=== PATIENT | female | born 1965 | race Two or more races ===

== ENCOUNTER 2024-03-09 13:03 | Emergency (ER) | payer SELFPAY ==
[~2024-03-09] VITALS: Ht 172.7 cm; Wt 80.0 kg
[2024-03-09 14:18] VITALS: BP 146/92; PULSE 94; RESP 18; TEMP 97.4; O2SAT 99
--- NOTE | 2024-03-09 14:29 | ED.PDOC ---
History of Present Illness HPI Comments A 58 YEAR OLD FEMALE PRESENTS TO THE ED WITH COMPLAINT OF COUGH AND MIGRAINE HEADACHE. PATIENT STATES SHE HAS BEEN EXPERIENCING A COUGH, CONGESTION, AND BODY ACHES FOR THE PAST 3 DAYS. PATIENT REPORTS SHE ALSO AHS A HISTORY OF MIGRAINE HEADACHES AND HAS BEEN EXPERIENCING A MIGRAINE HEADACHE FOR THE PAST 3 DAYS. PATIENT NOTES HER MIGRAINE IS THE SAME PREVIOUS MIGRAINES SHE HAS HAD IN THE PAST. PATIENT DENIES VISION CHANGES, SLURRED SPEECH, ONE-SIDED WEAKNESS, FACIAL DROOP, FEVER, CHILLS, SHORTNESS OF BREATH, CHEST PAIN, ABDOMINAL PAIN, NAUSEA, VOMITING, OR OTHER COMPLAINTS. NO OTHER SYMPTOMS OR MODIFYING FACTORS AT THIS TIME. PATIENT IS ALERT, ORIENTED X 4, AND HAS STEADY GAIT. Chief Complaint: Flu like Time Seen by MD: 13:46 Primary Care Provider: NONE Reviewed Notes: Nurses Notes, Medications, Allergies Allergies: Coded Allergies: Lactose (Verified Allergy, Unknown, 03/09/24) Home Meds Active Scripts Sumatriptan Succinate (Imitrex) 50 Mg Tab, 1 TAB PO BID, #14 TAB 1 Refill Prov:BRIDGET NUNN 03/09/24 Promethazine-Dm (Promethazine Dm 6.25-15 mg/5Ml) 1 Amara Amara, 5 ML PO TID, #150 ML Prov:BRIDGET NUNN 03/09/24 Information Source: Patient Mode of Arrival: Ambulatory Severity: Moderate Timing: Days Duration: Since onset, Days Prehospital treatment: None Medication Refill: For: Other (FLU-LIKE SYMPTOMS AND MIGRAINE HEADACHE ) Past Medical History Past Medical History (Other): MIGRAINE HEADACHES Surgical History: Denies all surgeries APPEALS EXAMINER History: No Pertinent APPEALS EXAMINER History Family History Family History: Reviewed,noncontributory to illness Social History Smoker: Non-Smoker Alcohol: Denies ETOH Use Drugs: Denies Drug Use Lives In: Home Constitutional: denies: chills, diaphoresis, fatigue, fever, malaise, sweats, weakness, others EENTM: reports: nose congestion; denies: blurred vision, double vision, ear bleeding, ear discharge, ear drainage, ear pain, ear ringing, eye pain, eye redness, hearing loss, mouth pain, mouth swelling, nasal discharge, nose bleeding, nose pain, photophobia, tearing, throat pain, throat swelling, voice changes, others Respiratory: reports: cough; denies: hemoptysis, orthopnea, SOB at rest, shortness of breath, SOB with excertion, stridor, wheezing, others Cardiovascular: denies: chest pain, dizzy spells, diaphoresis, Dyspnea on exertion, edema, irregular heart beat, left arm pain, lightheadedness, palpitations, PND, syncope, others Gastrointestinal: denies: abdomen distended, abdominal pain, blood streaked bowels, constipated, diarrhea, dysphagia, difficulty swallowing, hematemesis, melena, nausea, poor appetite, poor fluid intake, rectal bleeding, rectal pain, vomiting, others Genitourinary: denies: abnormal vagina bleeding, burning, dyspareunia, dysuria, flank pain, frequency, hematuria, incontinence, pain, , vagina discharge, urgency, others Neurological: reports: headache; denies: dizziness, fainting, left sided numbness, left sided weakness, numbness, paresthesia, pre-existing deficit, right sided numbness, right sided weakness, seizure, speech problems, tingling, tremors, weakness, others Musculoskeletal: denies: back pain, gout, joint pain, joint swelling, muscle pain, muscle stiffness, neck pain, others Integumetry: denies: bruises, change in color, change in hair/nails, dryness, laceration, lesions, lumps, rash, wounds, others Allergic/Immunocompromised: denies: Difficulty Healing, Frequent Infections, Hives, Itching, others Hematologic/Lymphatic: denies: anemia, blood clots, easy bleeding, easy bruising, swollen glands, others Endocrine: denies: excessive hunger, excessive sweating, excessive thirst, excessive urination, flushing, intolerance to cold, intolerance to heat, un explained weight gain, unexplained weight loss, others Psychiatric: denies: anxiety, bipolar disorder, depression, hopeless, panic disorder, schizophrenia, sleepless, suicidal, others All Other Systems: Reviewed and Negative Physical Exam General Appearance: Mild Distress, Normal, Other (ANXIOUS ) HEENT: Normal ENT Inspection, PERRL/EOMI, Pharynx Normal, TMs Normal Neck: Full Range of Motion, Non-Tender, Normal, Normal Inspection Respiratory: Chest Non-Tender, Lungs Clear, No Accessory Muscle Use, No Respiratory Distress, Normal Breath Sounds Cardiovascular: No Edema, No JVD, No Murmur, No Gallop, Normal Peripheral Pulses, Regular Rate/Rhythm Breast Exam: Deferred Gastrointestinal: No Organomegaly, Non Tender, No Pulsatile Mass, Normal Bowel Sounds, Soft Genitalia: Deferred Pelvic: Deferred Rectal: Deferred Extremities: No calf tenderness, Normal capillary refill, Normal inspection, Normal range of motion, Non-tender, No pedal edema Musculoskeletal : Apperance: Normal Neurologic: Alert, [employer] II-XII nml as Tested, Headache, No Motor Deficits, Norm al Affect, Normal Mood, No Sensory Deficits Cerebellar Function: Normal Reflexes: Normal Skin: Dry, Normal Color, Warm Peripheral Pulses: 2+ carotid (R), 2+ carotid (L) Lymphatic: No Adenopathy Was a procedure done? Was a procedure done?: No Differential Dx Considerations may include: MIGRAINE HEADACHES, TENSION HEADACHE, URI, BRONCHITIS, PNEUMONIA, TONSILLITIS, OTITIS MEDIA, SINUSITIS X-Ray, Labs, Meds, VS Vital Signs Date Time Temp Pulse Resp B/P (MAP) Pulse Ox O2 Delivery O2 Flow Rate FiO2 03/09/24 14:18 97.4 94 18 146/92 (110) 99 97.4 03/09/24 14:18 94 18 99 Room Air 03/09/24 13:22 97.4 94 18 146/92 (110) 99 Current Medications Medications (Trade) Dose Ordered Sig/Ro Route Start Time Stop Time Status Last Admin Sumatriptan Succinate (Imitrex Inj) 6 mg ONCE ONCE SC 03/09/24 14:45 03/09/24 14:46 DC 03/09/24 14:48 Ondansetron HCl (Zofran Po) 4 mg ONCE ONCE PO 03/09/24 14:45 03/09/24 14:46 DC 03/09/24 14:47 CHEST RADIOGRAPH Indication: COUGH Technique: Frontal and lateral view of the chest was obtained Comparison: None FINDINGS: Lines and Tubes: None Lungs: Clear Pleura: No effusion. No pneumothorax. Cardiomediastinal contours: Unremarkable Bones: Unremarkable IMPRESSION: 1. No evidence of acute disease. ATED BY: ROSEY BROWN MD DICTATED DATE/TIME: 03/09/24 143 SIGNED BY: ROSEY BROWN MD SIGNED DATE/TIME: 03/09/241436 CC: X-Ray, Labs, Meds, VS Comment EXTERNAL MEDICAL RECORDS REVIEWED: [NONE] INDEPENDENT HISTORIANS: [NONE] SOCIAL DETERMINANTS OF HEALTH: [NONE] LABS ORDERED: NONE REVIEWED AND INTERPRETED RESULTS: NONE IMAGING ORDERED: XR CHEST TREATMENTS ORDERED: IMITREX 6 MG IM, ZOFRAN 4 MG P.O. PROCEDURES PERFORMED: NONE CRITICAL CARE TIME: NONE I HAVE DISCUSSED THE PATIENT WITH THE ATTENDING PHYSICIAN DR. RIVERA AND HE AGREES WITH THE PATIENT'S PLAN OF CARE AND DISPOSITION. BASED ON HISTORY OF PRESENT ILLNESS, AND PHYSICAL EXAM, PATIENT WILL BE DISCHARGED HOME. SHARED DECISION MAKING: PATIENT INSTRUCTED TO FOLLOW UP WITH PRIMARY CARE PROV IDER IN 1-2 DAYS FOR RE-EVALUATION OF SYMPTOMS. PATIENT VERBALIZES UNDERSTANDING TO RETURN TO ED FOR NEW OR WORSENING SYMPTOMS OR IF FOLLOW UP WITH PCP CANNOT BE OBTAINED. PATIENT FEELS COMFORTABLE GOING HOME AT THIS TIME. ALL QUESTIONS ADDRESSED AT TIME OF DISCHARGE. Images Reviewed?: Images reviewed and evaluated by me Time of 1ST Reevaluation: 15:00 Reevaluation 1ST: Improved Patient Education/Counseling: Diagnosis, Treatment, Need For Follow Up Family Education/Counseling: Diagnosis, Treatment, Need For Follow Up Medical Screening: No EMC Exist At This Time Departure 1 Departure Time of Disposition: 15:00 Impression: Primary Impression: URI (upper respiratory infection) Qualified Codes: J06.9 - Acute upper respiratory infection, unspecified Additional Impression: Migraine headache without aura Qualified Codes: G43.009 - Migraine without aura, not intractable, without status migrainosus Disposition: 01 HOME / SELF CARE / HOMELESS Condition: Stable Additional Instructions: FOLLOW-UP WITH PCP IN 1 TO 2 DAYS. TAKE MEDICATIONS PRESCRIBED. RETURN TO ED FOR ANY NEW OR WORSENING SYMPTOMS. e-Prescriptions Sumatriptan Succinate (Imitrex) 50 Mg Tab 1 TAB PO BID, #14 TAB 1 Refill Prov: BRIDGET NUNN 03/09/24 Promethazine-Dm (Promethazine Dm 6.25-15 mg/5Ml) 1 Amara Amara 5 ML PO TID, #150 ML Prov: BRIDGET NUNN 03/09/24 Discharged With: Self Critical Care Note Critical Care Time?: No Stability Stability form required: No I personally scribed for BRIDGET NUNN ([email or web address]) on 03/09/24 at 14:29. Electronically submitted by Orlando Bautista ([email or web address]). I personally scribed for BRIDGET NUNN ([email or web address]) on 03/09/24 at 14:46. Electronically submitted by Orlando Bautista ([email or web address]). BRIDGET NUNN Mar 09, 2024 14:29
--- NOTE | 2024-03-09 14:40 | DVH ---
CHEST RADIOGRAPH Indication: COUGH Technique: Frontal and lateral view of the chest was obtained Comparison: None FINDINGS: Lines and Tubes: None Lungs: Clear Pleura: No effusion. No pneumothorax. Cardiomediastinal contours: Unremarkable Bones: Unremarkable IMPRESSION: 1. No evidence of acute disease.
[2024-03-09] MEDS: ONDANSETRON ODT 4 MG TAB PO ONE (14:47)
[2024-03-09] MEDS: SUMAtriptan SUCCINATE 6 MG/0.5 ML VL SC ONE (14:48)
[2024-03-09] MEDS ORDERED: PROM1SOL4 PO (14:54)
[2024-03-09] MEDS ORDERED: SUMA50TA2 PO (14:54)
== END 2024-03-09 14:54 | disposition home or self-care (01) ==
LOC: ER 13:03
DX: G43.809 Other migraine, not intractable, without status migrainosus (principal); Z88.8 Allergy status to other drugs, medicaments and biological substances
CPT/HCPCS: 71046; 96372; 99283; J3030; Q0162

== ENCOUNTER 2024-05-05 18:47 | Inpatient (IN) | payer MEDICAID, OTHER ==
[~2024-05-05] VITALS: Ht 172.7 cm; Wt 83.2 kg
[~2024-05-05 18:47] MED LIST: PROM1SOL4 PO; SUMA50TA2 PO
--- NOTE | 2024-05-05 19:08 | ED.PDOC ---
"GI ASSESSMENT HPI Comments HPI: Poor Historian. 58-year-old female presents to emergency depart for one day history of epigastric abdominal pain with the associated nausea vomiting diarrhea nonbilious nonbloody normal stool color. Onset of symptoms earlier today. 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 Past Surgical History: Appendectomy, tonsillectomy REVIEW OF SYSTEMS: CONSTITUTIONAL: Denies acute: fever, diaphoresis, chills, HEAD: Denies acute: photophobia Eyes: Denies acute: Double vision, vision loss, eye pain, eye discharge. EARS: Denies acute: tinnitus, hearing loss, ear discharge, ear pain, THROAT: Denies acute: sore throat, swelling, difficulty swallowing , pain with swallowing, change in voice. NECK: Denies acute: neck pain, neck swelling, stiff neck. HEART: Denies acute : chest pain, palpitations, LUNGS: Denies acute: SOB, wheezing, cough, hemoptysis ABDOMEN: Denies acute: , melena , hematemesis, hematochezia SKIN: Denies acute: rash, redness, lesions, itchiness. EXTREMITIES: Denies acute: calf pain, numbness, tingling, weakness, denies pain in extremity. Denies acute: Low back pain. Neuro: Denies acute: focal neurological deficit, motor or sensory focal neurological deficit, tremors, seizure like activity, confusion, dizziness, change in mental status, loss of bowel or bladder function, cauda equina like symptoms. : Denies acute: dysuria, hematuria, flank pain, increase in urinary frequency. PSYCH: Denies acute: hallucination, suicidal ideation, homicidal ideation. FEMALE: Denies acute: abnormal vaginal bleeding, foul odor, unusual discharge. PHYSICAL EXAM: General: Mild acute distress, awake and alert. Head: normocephalic, atraumatic. Neck: supple, trachea is midline, no swelling. Throat: Normal phonation. Eyes:, no erythema, no purulent discharge, no proptosis, no icterus. Heart: regular rate, regular rhythm, no significant murmur appreciated. Lungs: no apparent respiratory distress, Able to speak in full sentences. No wheezing, no rhonchi, no crackles. No stridors Clear to auscultation bilaterally. Abdomen: Minimal epigastric tender to palpation, non distended, soft, no guarding, no rebound, + bowel sounds. Neuro: Awake, Alert, oriented to name, self, situation, follows commands GCS=15. Speech is normal. Skin: no petechia, no purpura, no cyanosis, non-pale, not jaundice. Lower extremities: --no - Pitting edema no deformity, no focal swelling, no calf TTP. Makes eye contact. moves all four extremities. Face: no apparent facial droop. Ambulating in the ED independently. ED COURSE: Time Seen by MD: 18:50 Primary Care Provider: NONE Reviewed Notes: Nurses Notes, Allergies Allergies: Coded Allergies: Lactose (Verified Allergy, Unknown, 03/09/24) Home Meds Active Scripts Sumatriptan Succinate (Imitrex) 50 Mg Tab, 1 TAB PO BID, #14 TAB 1 Refill Prov:BRIDGET NUNN 03/09/24 Promethazine-Dm (Promethazine Dm 6.25-15 mg/5Ml) 1 Amara Amara, 5 ML PO TID, #150 ML Prov:BRIDGET NUNN 03/09/24 Information Source: Patient Past Medical History Surgical History: Denies all surgeries CIVILIAN TECHNICIAN History: No Pertinent CIVILIAN TECHNICIAN History Family History Family History: Reviewed,noncontributory to illness Social History Smoker: Non-Smoker Alcohol: Denies ETOH Use Drugs: Denies Drug Use Lives In: Home Was a procedure done? Was a procedure done?: No GI differential Dx Differential Diagnosis: Other (DDX include Diverticulitis, colitis, gastroenteritis, acute abdomen, SBO, enteritis, constipation, volvulus, appendic itis, Gallbladder disease, choledocolithiasis, ascending cholangitis, pancreatitis, intraAbdominal mass/neoplasm, hepatitis, UTI, pylonephritis, kidney stone, aneurysm, dissection, Inflammatory bowel disease, gastroparesis, ischemic bowel, ovarian torsion, ovarian cyst/mass, tubo-ovarian abscess, , PID, STD.) X-Ray, Labs, Meds, VS Vital Signs Date Time Temp Pulse Resp B/P (MAP) Pulse Ox O2 Delivery O2 Flow Rate FiO2 05/06/24 00:03 135/80 05/05/24 23:32 149/93 05/05/24 23:30 98.0 80 13 149/93 (111) 97 98.0 05/05/24 23:30 80 13 97 Room Air* 0 21 05/05/24 19:11 70 05/05/24 19:08 97.5 87 18 120/50 (73) 98 Lab Test 05/05/24 22:11 05/05/24 21:35 05/05/24 20:42 05/05/24 20:38 Range/Units Troponin I High Sensitivity 49 *H </=34 ng/L Lactic Acid Level 1.8 0.4-2.0 mmol/L Influenza Type A Antigen Negative Negative Influenza Type B Antigen Negative Negative SARS-CoV-2 Antigen (Rapid) Negative NEGATIVE Urine Color Light-yellow Yellow Urine Clarity Clear Clear Urine pH 5.0 5.0-9.0 Urine Specific [place] 1.020 1.001-1.035 Urine Protein Negative Negative Urine Ketones Negative Negative Urine Blood 2+ H Negative /uL Urine Nitrite 2+ H Negative Urine Bilirubin Negative Negative Urine Urobilinogen Normal Negative mg/dL Urine Leukocyte Esterase Negative Negative /uL Urine RBC 2 0 - 4 /hpf Urine Microscopic WBC 3 0-5 /HPF Urine Squamous Epithelial Cells Few <5 /hpf Urine Bacteria Few H None Seen /hpf Urine Mucus Few None Seen Urine Glucose Normal Normal mg/dL Urine Opiates Screen Neg NEGATIVE Urine Fentanyl Screen Neg NEGATIVE Urine Barbiturates Screen Neg NEGATIVE Urine Phencyclidine Screen Neg NEGATIVE Urine Amphetamines Screen Neg NEGATIVE Urine Benzodiazepines Screen Neg NEGATIVE Urine Cocaine Screen Neg NEGATIVE Urine Cannabinoids Screen Pos NEGATIVE Test 05/05/24 20:05 05/05/24 19:16 Range/Units Troponin I High Sensitivity 29 17 </=34 ng/L White Blood Count 11.7 H 4.4-10.8 10^3/uL Red Blood Count 5.30 H 4.0-5.20 10^6/uL Hemoglobin 16.5 H 12.2-16.2 g/dL Hematocrit 48.6 H 36.0-46.0 % Mean Corpuscular Volume 91.6 80.0-100.0 fL Mean Corpuscular Hemoglobin 31.2 28.0-32.0 pg Mean Corpuscular Hemoglobin Concent 34.0 32.0-36.0 g/dL Red Cell Distribution Width 12.8 11.8-14.3 % Platelet Count 281 140-450 10^3/uL Mean Platelet Volume 7.8 6.9-10.8 fL Neutrophils (%) (Auto) 76.6 37.0-80.0 % Lymphocytes (%) (Auto) 18.0 10.0-50.0 % Monocytes (%) (Auto) 4.0 0.0-12.0 % Eosinophils (%) (Auto) 0.6 0.0-7.0 % Basophils (%) (Auto) 0.8 0.0-2.0 % Neutrophils # (Auto) 8.9 H 1.6-8.6 10 ^3/uL Lymphocytes # (Auto) 2.1 0.4-5.4 10 ^3/uL Monocytes # (Auto) 0.5 0-1.3 10 ^3/uL Eosinophils # (Auto) 0.1 0-0.8 10 ^3/uL Basophils # (Auto) 0.1 0-0.2 10 ^3/uL Nucleated Red Blood Cells 0.0 % Sodium Level 138 136-145 mmol/L Potassium Level 3.9 3.5-5.1 mmol/L Chloride Level 104 98-107 mmol/L Carbon Dioxide Level 22 20-31 mmol/L Anion Gap 12 5-15 Blood Urea Nitrogen 12 9-23 mg/dL Creatinine 0.84 0.550-1.02 mg/dL Glomerular Filtration Rate Calc 81 >90 mL/min BUN/Creatinine Ratio 14.3 10.0-20.0 Serum Glucose 122 H 74-106 mg/dL Lactic Acid Level 2.1 *H 0.4-2.0 mmol/L Calcium Level 10.5 H 8.7-10.4 mg/dL Magnesium Level 1.8 1.6-2.6 mg/dL Total Bilirubin 0.6 0.2-1.0 mg/dL Aspartate Amino Transferase (AST) 21 13-40 U/L Alanine Aminotransferase (ALT) 27 7-40 U/L Alkaline Phosphatase 65 46-116 U/L Total Protein 6.7 5.7-8.2 g/dL Albumin 4.7 3.2-4.8 g/dL Lipase 44 12-53 U/L Plasma/Serum Blood Alcohol 36.1 H <10 mg/dL Current Medications Medications (Trade) Dose Ordered Sig/Ro Route Start Time Stop Time Status Last Admin Sodium Chloride 1,000 ml @ 1,000 mls/hr Q1H ONCE IV 05/05/24 19:15 05/05/24 20:14 DC 05/05/24 23:28 Ondansetron HCl (Zofran) 8 mg ONCE ONCE IV 05/05/24 19:15 05/05/24 19:16 DC 05/05/24 23:34 Ceftriaxone Sodium 50 ml @ 100 mls/hr ONCE ONCE IV 05/05/24 22:15 05/05/24 22:44 DC 05/05/24 23:31 Nitroglycerin (Ntrostat Sublingual) 0.4 mg ONCE ONCE SL 05/05/24 23:30 05/05/24 23:31 DC 05/05/24 23:32 Pantoprazole Sodium (Protonix Tablet) 40 mg ONCE ONCE PO 05/06/24 00:00 05/06/24 00:01 DC 05/06/24 00:19 Sucralfate (Carafate Tab) 1 gm ONCE ONCE PO 05/06/24 00:00 05/06/24 00:01 DC 05/06/24 00:19 Lidocaine HCl (Xylocaine 2% Viscous) 10 ml ONCE ONCE PO 05/06/24 00:00 05/06/24 00:01 DC 05/06/24 00:19 [place] [address] Ph: [phone] DIAGNOSTIC IMAGING Diagnostic Imaging Report : [id number] Signed PATIENT: CORY OMER ACCT: [id number] UNIT: [id number] : 1965 LOC: ER ROOM / BED: / AGE / SEX: 58 / F ADM STATUS: REG ER SERVICE 02 ORDERING PHYSICIAN: ANALI LEHMAN DO PROCEDURE(s): CXRP - CHEST PORTABLE REASON: abd pain n/v/d ORDER NUMBER(s): [id number], ACCESSION NUMBER(s): [id number] CHEST RADIOGRAPH Indication: abd pain n/v/d Technique: Single frontal view of the chest was obtained COMPARISON: None FINDINGS: Lines and Tubes: None Lungs: Clear Pleura: No effusion. No pneumothorax. Cardiomediastinal contours: Unremarkable Bones: Unremarkable IMPRESSION: No acute disease. ATED BY: NORBERTO RAMIREZ MD DICTATED DATE/TIME: 05/05/241955 SIGNED BY: NORBERTO RAMIREZ MD SIGNED DATE/TIME: 05/05/241955 CC: [place] [id number] Ph: [phone] DIAGNOSTIC IMAGING Diagnostic Imaging Report : [id number] Signed PATIENT: CORY OMER ACCT: [id number] UNIT: [id number] : 1965 LOC: ER ROOM / BED: / AGE / SEX: 58 / F ADM STATUS: REG ER SERVICE 02 ORDERING PHYSICIAN: ANALI LEHMAN DO PROCEDURE(s): ABPL - CT AB PEL WO CON-NO ORAL OR IV REASON: abd pain n/v/d ORDER NUMBER(s): [id number], ACCESSION NUMBER(s): [id number] Exam: CT CT AB PEL WO CON-NO ORAL OR IV History: abd pain n/v/d Comparison Study: None available TECHNIQUE: Multidetector CT of the abdomen and pelvis was performed from lung bases to pubic symphysis. Imaging was performed without IV contrast. Axial, coronal, and sagittal multiplanar reformats were obtained from the axial data set by the technologist. RADIATION DOSE: DLP 761.15 mGy.cm; CTDI vol 15.01 mGy. Findings: Limited evaluation given noncontrast technique. Lungs: The lung bases are clear. Heart: No cardiomegaly or pericardial effusion. Liver: Unremarkable. Gallbladder: Unremarkable. Spleen: Unremarkable Pancreas: Unremarkable Adrenals: Unremarkable Kidneys: Subcentimeter hypodense lesions in the left kidney which are too small to characterize. GI tract: Diverticulosis without evidence of acute diverticulitis. : Unremarkable. Vasculature: Mild aortoiliac atherosclerosis. Lymphadenopathy: Absent Peritoneum: No ascites Musculoskeletal: Mild multilevel degenerative changes of the thoracolumbar spine. Soft tissues: Bilateral gluteal and proximal thigh soft tissue edema with superimposed injection granulomas. Impression: 1. Limited evaluation given noncontrast technique. 2. No acute abdominopelvic abnormalities. 3. Diverticulosis without evidence of acute diverticulitis. 4. Bilateral gluteal and proximal thigh soft tissue edema with superimposed injection granulomas. ATED BY: KAYLAN FOWLER DO DICTATED DATE/TIME: 05/05/242022 SIGNED BY: KAYLAN FOWLER DO SIGNED DATE/TIME: 05/05/242022 CC: Time of 1ST Reevaluation: 22:27 Reevaluation 1ST: Improved Patient Education/Counseling: Diagnosis, Treatment Family Education/Counseling: Other Comments Patient presented with the above HPI.--- ABDOMINAL PAIN ---workup was initiated. patient was found with the above mentioned diagnosis. the following medications were ordered: please refer to order lists of meds and tests obtained by myself Dr. Lehman. Patient ED course and VS have been stabilized. Patient has been reassessed in the ED and remained in a stable condition. Pertinent incidental findings were discussed with the patient and/or family. Patient/family voices understanding and is agreeable with plan. Patient has been observed in the ED adequate length of time to insure improvement/stability. Escalation of care considered: Consideration of escalation to observation or admission Patient was ADMITTED to the medicine team for further evaluation and treatment of their presentation. All the reports of any imaging studies that were ordered by myself were reviewed by myself. Departure 1 Departure Time of Disposition: 22:04 Impression: Primary Impression: Urinary tract infection Additional Impressions: Alcohol abuse Nausea vomiting and diarrhea Abdominal pain Elevated troponin Disposition: ADMITTED INPATIENT Admit to: [facility] Condition: Guarded Additional Instructions: [place] [address] Ph: [phone] DIAGNOSTIC IMAGING Diagnostic Imaging Report : [id number] Signed PATIENT: CORY OMER ACCT: [id number] UNIT: [id number] : 1965 LOC: ER ROOM / BED: / AGE / SEX: 58 / F ADM STATUS: REG ER SERVICE 02 ORDERING PHYSICIAN: ANALI LEHMAN DO PROCEDURE(s): CXRP - CHEST PORTABLE REASON: abd pain n/v/d ORDER NUMBER(s): [id number], ACCESSION NUMBER(s): [id number] CHEST RADIOGRAPH Indication: abd pain n/v/d [address] [address] Ph: [phone] DIAGNOSTIC IMAGING Diagnostic Imaging Report : [id number] Signed PATIENT: CORY OMER ACCT: [id number] UNIT: [id number] : 1965 LOC: ER ROOM / BED: / AGE / SEX: 58 / F ADM STATUS: REG ER SERVICE 02 ORDERING PHYSICIAN: ANALI LEHMAN DO PROCEDURE(s): ABPL - CT AB PEL WO CON-NO ORAL OR IV REASON: abd pain n/v/d ORDER NUMBER(s): [id number], ACCESSION NUMBER(s): [id number] Exam: CT CT AB PEL WO CON-NO ORAL OR IV History: abd pain n/v/d Comparison Study: None available TECHNIQUE: Multidetector CT of the abdomen and pelvis was performed from lung bases to pubic symphysis. Imaging was performed without IV contrast. Axial, coronal, and sagittal multiplanar reformats were obtained from the axial data set by the technologist. RADIATION DOSE: DLP 761.15 mGy.cm; CTDI vol 15.01 mGy. Findings: Limited evaluation given noncontrast technique. Lungs: The lung bases are clear. Heart: No cardiomegaly or pericardial effusion. Liver: Unremarkable. Gallbladder: Unremarkable. Spleen: Unremarkable Pancreas: Unremarkable Adrenals: Unremarkable Kidneys: Subcentimeter hypodense lesions in the left kidney which are too small to characterize. GI tract: Diverticulosis without evidence of acute diverticulitis. : Unremarkable. Vasculature: Mild aortoiliac atherosclerosis. Lymphadenopathy: Absent Peritoneum: No ascites Musculoskeletal: Mild multilevel degenerative changes of the thoracolumbar spine. Soft tissues: Bilateral gluteal and proximal thigh soft tissue edema with superimposed injection granulomas. Impression: 1. Limited evaluation given noncontrast technique. 2. No acute abdominopelvic abnormalities. 3. Diverticulosis without evidence of acute diverticulitis. 4. Bilateral gluteal and proximal thigh soft tissue edema with superimposed injection granulomas. ATED BY: KAYLAN FOWLER DO DICTATED DATE/TIME: 05/05/242022 SIGNED BY: KAYLAN FOWLER DO SIGNED DATE/TIME: 05/05/242022 CC: Technique: Single frontal view of the chest was obtained COMPARISON: None FINDINGS: Lines and Tubes: None Lungs: Clear Pleura: No effusion. No pneumothorax. Cardiomediastinal contours: Unremarkable Bones: Unremarkable IMPRESSION: No acute disease. ATED BY: NORBERTO RAMIREZ MD DICTATED DATE/TIME: 05/05/241955 SIGNED BY: NORBERTO RAMIREZ MD SIGNED DATE/TIME: 05/05/241955 CC: Discharged With: Self Critical Care Note Critical Care Time?: Yes (45 min-critical care time only) Heart Score Heart Score: Heart Score Response (Comments) Value History Slightly Suspicious 0 EKG Normal 0 Age 45-64 1 Risk Factors >3 or Hx ASHD 2 Troponin 1-2 x's Normal limit 1 Total 4 I personally scribed for ANALI LEHMAN DO ([email or web address]) on 05/05/24 at 20:44. Electronically submitted by Jn Kim [email or web address]). ANALI LEHMAN DO May 05, 2024 19:08"
[2024-05-05] MEDS: ONDANSETRON HCL 4 MG/2 ML VIAL IV ONE (19:15)
[2024-05-05 19:33] LABS: Basophils # (auto) 0.1 10 ^3/uL (0-0.2); Basophils % (auto) 0.8 % (0.0-2.0); Eosinophils # (auto) 0.1 10 ^3/uL (0-0.8); Eosinophils % (auto) 0.6 % (0.0-7.0); Hematocrit 48.6 % (36.0-46.0); Hemoglobin 16.5 g/dL (12.2-16.2); Lymphocytes # (auto) 2.1 10 ^3/uL (0.4-5.4); Mean Corpuscular Hemoglobin 31.2 pg (28.0-32.0); Mean Corpuscular Volume 91.6 fL (80.0-100.0); Monocytes # (auto) 0.5 10 ^3/uL (0-1.3); Neutrophils # (auto) 8.9 10 ^3/uL (1.6-8.6); Neutrophils % (auto) 76.6 % (37.0-80.0); Platelet Count (auto) 281 10^3/uL (140-450); Red Cell Distribution Width 12.8 % (11.8-14.3); White Blood Cell 11.7 10^3/uL (4.4-10.8)
[2024-05-05 19:52] LABS: Alanine Aminotransferase 27 U/L (7-40); Albumin 4.7 g/dL (3.2-4.8); Alkaline Phosphatase 65 U/L (46-116); Anion Gap 12 (5-15); Aspartate Aminotransferase 21 U/L (13-40); BUN/Creatinine Ratio 14.3 (10.0-20.0); Blood Urea Nitrogen 12 mg/dL (9-23); Carbon Dioxide 22 mmol/L (20-31); Chloride 104 mmol/L (98-107); Lipase 44 U/L (12-53); Magnesium 1.8 mg/dL (1.6-2.6); Potassium 3.9 mmol/L (3.5-5.1); Sodium 138 mmol/L (136-145)
[2024-05-05 19:53] LABS: Bilirubin, Total 0.6 mg/dL (0.2-1.0); Total Protein 6.7 g/dL (5.7-8.2)
--- NOTE | 2024-05-05 20:01 | DVH ---
CHEST RADIOGRAPH Indication: abd pain n/v/d Technique: Single frontal view of the chest was obtained COMPARISON: None FINDINGS: Lines and Tubes: None Lungs: Clear Pleura: No effusion. No pneumothorax. Cardiomediastinal contours: Unremarkable Bones: Unremarkable IMPRESSION: No acute disease.
[2024-05-05 20:05] LABS: Calcium 10.5 mg/dL (8.7-10.4); Glucose 122 mg/dL (74-106)
--- NOTE | 2024-05-05 20:25 | DVH ---
Exam: CT CT AB PEL WO CON-NO ORAL OR IV History: abd pain n/v/d Comparison Study: None available TECHNIQUE: Multidetector CT of the abdomen and pelvis was performed from lung bases to pubic symphysi s. Imaging was performed without IV contrast. Axial, coronal, and sagittal multiplanar reformats were obtained from the axial data set by the technologist. RADIATION DOSE: DLP 761.15 mGy.cm; CTDI vol 15.01 mGy. Findings: Limited evaluation given noncontrast technique. Lungs: The lung bases are clear. Heart: No cardiomegaly or pericardial effusion. Liver: Unremarkable. Gallbladder: Unremarkable. Spleen: Unremarkable Pancreas: Unremarkable Adrenals: Unremarkable Kidneys: Subcentimeter hypodense lesions in the left kidney which are too small to characterize. GI tract: Diverticulosis without evidence of acute diverticulitis. : Unremarkable. Vasculature: Mild aortoiliac atherosclerosis. Lymphadenopathy: Absent Peritoneum: No ascites Musculoskeletal: Mild multilevel degenerative changes of the thoracolumbar spine. Soft tissues: Bilateral gluteal and proximal thigh soft tissue edema with superimposed injection gran ulomas. Impression: 1. Limited evaluation given noncontrast technique. 2. No acute abdominopelvic abnormalities. 3. Diverticulosis without evidence of acute diverticulitis. 4. Bilateral gluteal and proximal thigh soft tissue edema with superimposed injection granulomas.
[2024-05-05 20:28] LABS: Lactic Acid w/Reflex 2.1 mmol/L (0.4-2.0)
[2024-05-05 21:03] LABS: Urine Bacteria FEW /hpf (None Seen); Urine Blood 2+ /uL (Negative); Urine Clarity Clear (Clear); Urine Color Light-Yellow (Yellow); Urine Mucus FEW (None Seen); Urine Protein, UAD Negative (Negative); Urine Squamous Epithelial Cell FEW /hpf (<5); Urine Urobilinogen Normal (Negative); Urine WBC 3 /HPF (0-5)
[2024-05-05 21:06] LABS: Cannabinoid Screen, Urine Pos (NEGATIVE)
[2024-05-05 21:09] LABS: Amphetamine Screen, Urine Neg (NEGATIVE); Barbiturate Scree,Urine Neg (NEGATIVE); Benzodiazephine Screen, Urine Neg (NEGATIVE); Cocaine Screen, Urine Neg (NEGATIVE); Opiate Scree,Urine Neg (NEGATIVE); Phencyclidine Screen, Urine Neg (NEGATIVE)
[2024-05-05 22:08] LABS: COVID19 ANTIGEN SOFIA FIA NEGATIVE (NEGATIVE)
[2024-05-05 22:21] LABS: Rapid Influenza A Negative (Negative); Rapid Influenza B Negative (Negative)
[2024-05-05] MEDS: SODIUM CHLORIDE 0.9% 1,000 ML IV ONE (23:28)
[2024-05-05 23:30] VITALS: PULSE 80; RESP 13; O2SAT 97
[2024-05-05] MEDS: cefTRIAXone 1GM/50ML D5W 50 ML IV ONE (23:31)
[2024-05-05] MEDS: NITROGLYCERIN 0.4 MG SL TAB SL ONE (23:32)
[2024-05-06] VITALS (8 sets, daily range): BP systolic 118–187; BP diastolic 78–109; PULSE 84–106; RESP 16–18; TEMP 97.6–100.1; O2SAT 94–100
[2024-05-06] MEDS: PANTOPRAZOLE 40 MG TAB PO ONE (00:19)
[2024-05-06] MEDS: LIDOCAINE VISCOUS 2% 15ML UD PO ONE (00:19)
[2024-05-06] MEDS: SUCRALFATE 1 GM TAB PO ONE (00:19)
[2024-05-06] MEDS ORDERED: MORPHINE SULFATE INJ 2 MG/ml SYRG IV PRN (00:30)
[2024-05-06] MEDS ORDERED: NITROGLYCERIN 0.4 MG SL TAB SL PRN (00:30)
[2024-05-06] MEDS ORDERED: ONDANSETRON HCL 4 MG/2 ML VIAL IV PRN (00:30)
[2024-05-06] MEDS: SODIUM CHLORIDE 0.9% 1,000 ML IV SCH (00:49)
--- NOTE | 2024-05-06 01:12 | DVHHPRES ---
History of Present Illness Resident Creating Document: TESS PATEL RESIDENT History of Present Illness Nisreen Herbert is a 58-year-old female with a PMH of migraines, cervical radiculopathy presented to the ED with the chief complaints of acute abdominal pain since day of admission. Patient reported to the afternoon after eating seizure only started having abdominal pain mostly epigastric Reason which is cramping 8/10, going back aggravated by lying down, some relief when sitting position associated with a mild nausea but no vomiting which prompted her to visit ED. patient also reported today she had 1 beer. Patient reported 3 weeks ago she had mild abdominal pain and subsided itself. On my assessment patient denies fever, chest pain, diaphoresis, shortness of breath hematochezia, melena, constipation, diarrhea and other acute associated symptoms. PMH: Migraine, cervical radiculopathy PSH: Appendicectomy, tonsillectomy Family history: Reviewed, noncontributory Social history: Lives at home. Occasional alcohol and marijuana abuse but no smoking Allergies: Lactose intolerance Home medications: Gabapentin Review of Systems Constitutional: No: Fever, Chills, Sweats, Weakness, Malaise, Other Eyes: No: Pain, Vision change, Conjunctivae inflammation, Eyelid inflammation, Other, Redness ENT: No: Ear pain, Ear discharge, Nose pain, Nose discharge, Nose congestion, Mouth pain, Mouth swelling, Throat pain, Throat swelling, Other Cardiovascular: No: Chest Pain, Palpitations, Orthopnea, Paroxysmal Noc. Dyspnea, Edema, Lt Headedness, Other Gastrointestinal: Nausea, Abdominal Pain Genitourinary: No Dysuria, No Frequency, No Incontinence, No Hematuria, No Retention, No Other Musculoskeletal: No: other, neck pain, shoulder pain, arm pain, back pain, hand pain, leg pain, foot pain Skin: No: Rash, Lesions, Jaundice, Bruising, Other Neurological: Numbness (Right upper extremity) Allergies: Coded Allergies: Lactose (Verified Allergy, Unknown, 03/09/24) Medications Current Medications Medications Dose Ordered Sig/Ro Route Start Time Stop Time Status Last Admin Dose Admin Sodium Chloride 10 ml Q8HR IV 05/06/24 06:00 Sodium Chloride 1,000 ml @ 120 mls/hr Q8H20M IV 05/06/24 00:30 05/06/24 00:49 120 MLS/HR Ondansetron HCl 4 mg Q4HP PRN IV 05/06/24 00:30 UNV Enoxaparin Sodium 40 mg DAILY SC 05/06/24 10:00 Acetaminophen 650 mg Q6HP PRN PO 05/06/24 00:30 Morphine Sulfate 2 mg Q4HPRN PRN IV 05/06/24 00:30 Nitroglycerin 0.4 mg Q5MINP PRN SL 05/06/24 00:30 Morphine Sulfate 2 mg Q30M PRN IV 05/06/24 00:30 Pantoprazole Sodium 40 mg DAILY IV 05/06/24 10:00 UNV Exam Vital Signs Vital Signs Date Time Temp Pulse Resp B/P (MAP) Pulse Ox O2 Delivery O2 Flow Rate FiO2 05/06/24 00:03 135/80 05/05/24 23:30 98.0 80 13 97 98.0 05/05/24 23:30 Room Air* 0 21 Exam Pt is lying on bed General Appearance: Alert, Oriented X3, Cooperative, moderate distress HEENT: Atraumatic, Mucous membranes moist/pink Respiratory: Clear to auscultation, Normal air movement, No added sounds Cardiovascular: Regular rate, Normal S1, Normal S2, No murmurs Abdominal: Mild epigastric tenderness. Active bowel sounds, Soft, no di stention Extremities: No edema, Normal pulses, No tenderness/swelling Skin: No Significant rash, except past surgical scars Neuro: Normal speech, paresthesia in left upper limb due to radiculopathy Psych/Mental Status: Mental status NL, Mood NL Nurse was there as sharperone during examination Labs/Xrays Labs Test 05/06/24 00:45 05/05/24 21:35 05/05/24 20:42 05/05/24 20:38 Range/Units Lactic Acid Level 1.8 0.4-2.0 mmol/L Influenza Type A Antigen Negative Negative Influenza Type B Antigen Negative Negative SARS-CoV-2 Antigen (Rapid) Negative NEGATIVE Urine Color Light-yellow Yellow Urine Clarity Clear Clear Urine pH 5.0 5.0-9.0 Urine Specific [place] 1.020 1.001-1.035 Urine Protein Negative Negative Urine Ketones Negative Negative Urine Blood 2+ H Negative /uL Urine Nitrite 2+ H Negative Urine Bilirubin Negative Negative Urine Urobilinogen Normal Negative mg/dL Urine Leukocyte Esterase Negative Negative /uL Urine RBC 2 0 - 4 /hpf Urine Microscopic WBC 3 0-5 /HPF Urine Squamous Epithelial Cells Few <5 /hpf Urine Bacteria Few H None Seen /hpf Urine Mucus Few None Seen Urine Glucose Normal Normal mg/dL Urine Opiates Screen Neg NEGATIVE Urine Fentanyl Screen Neg NEGATIVE Urine Barbiturates Screen Neg NEGATIVE Urine Phencyclidine Screen Neg NEGATIVE Urine Amphetamines Screen Neg NEGATIVE Urine Benzodiazepines Screen Neg NEGATIVE Urine Cocaine Screen Neg NEGATIVE Urine Cannabinoids Screen Pos NEGATIVE Test 05/05/24 19:16 Range/Units White Blood Count 11.7 H 4.4-10.8 10^3/uL Red Blood Count 5.30 H 4.0-5.20 10^6/uL Hemoglobin 16.5 H 12.2-16.2 g/dL Hematocrit 48.6 H 36.0-46.0 % Mean Corpuscular Volume 91.6 80.0-100.0 fL Mean Corpuscular Hemoglobin 31.2 28.0-32.0 pg Mean Corpuscular Hemoglobin Concent 34.0 32.0-36.0 g/dL Red Cell Distribution Width 12.8 11.8-14.3 % Platelet Count 281 140-450 10^3/uL Mean Platelet Volume 7.8 6.9-10.8 fL Neutrophils (%) (Auto) 76.6 37.0-80.0 % Lymphocytes (%) (Auto) 18.0 10.0-50.0 % Monocytes (%) (Auto) 4.0 0.0-12.0 % Eosinophils (%) (Auto) 0.6 0.0-7.0 % Basophils (%) (Auto) 0.8 0.0-2.0 % Neutrophils # (Auto) 8.9 H 1.6-8.6 10 ^3/uL Lymphocytes # (Auto) 2.1 0.4-5.4 10 ^3/uL Monocytes # (Auto) 0.5 0-1.3 10 ^3/uL Eosinophils # (Auto) 0.1 0-0.8 10 ^3/uL Basophils # (Auto) 0.1 0-0.2 10 ^3/uL Nucleated Red Blood Cells 0.0 % Sodium Level 138 136-145 mmol/L Potassium Level 3.9 3.5-5.1 mmol/L Chloride Level 104 98-107 mmol/L Carbon Dioxide Level 22 20-31 mmol/L Anion Gap 12 5-15 Blood Urea Nitrogen 12 9-23 mg/dL Creatinine 0.84 0.550-1.02 mg/dL Glomerular Filtration Rate Calc 81 >90 mL/min BUN/Creatinine Ratio 14.3 10.0-20.0 Serum Glucose 122 H 74-106 mg/dL Calcium Level 10.5 H 8.7-10.4 mg/dL Magnesium Level 1.8 1.6-2.6 mg/dL Total Bilirubin 0.6 0.2-1.0 mg/dL Aspartate Amino Transferase (AST) 21 13-40 U/L Alanine Aminotransferase (ALT) 27 7-40 U/L Alkaline Phosphatase 65 46-116 U/L Total Protein 6.7 5.7-8.2 g/dL Albumin 4.7 3.2-4.8 g/dL Lipase 44 12-53 U/L Plasma/Serum Blood Alcohol 36.1 H <10 mg/dL Assessment/Plan Assessment/Plan # ? PUD # rule out acute pancreatitis -lipase normal -CT abdominal pelvis showed no acute changes -NPO status and giving IVF -Protonix and antiemetics -elevated lactic acid -consider GI consult if needed # ?? UTI - ordered urine bacterial culture - currently giving Rocephin # hypertensive urgency # NSTEMI type 2 likely due to above -closely monitor blood pressure -EKG showed sinus rhythm -given hydralazine -started lisinopril 10 mg # alcohol abuse disorder # alcohol intoxication -serum alcohol positive -counseled regarding cessation for more than 17 minutes -closely monitor for withdrawal symptoms # marijuana abuse disorder -UDS positive -given counseling for cessation for more than 17 minutes # diverticulosis -evident on CT -patient follow up PUD PPX: Protonix VTE PPX: Lovenox Diet: NPO Goals of care discussed with the patient for more than 29 minutes: Full code status Case discussed with Dr. Lemons, patient and nurse Plan discussed with: Patient My Orders Orders - TESS PATEL RESIDENT Procedure Category Date Status Time Admit ADMIT 05/06/24 Transmitted 00:20 Allergies SANDOVAL 05/06/24 In Process 00:20 Code Status CODE 05/06/24 Transmitted 00:20 Sodium Chloride Lock PHA 05/06/24 In Process (Saline Lock Ns) 06:00 Sodium Chloride 0.9% PHA 05/06/24 In Process 00:30 Ondansetron Hcl PHA 05/06/24 Pending (Zofran) 00:30 Enoxaparin Sodium PHA 05/06/24 In Process (Lovenox) 10:00 Complete Blood Count LAB 05/06/24 Logged 04:00 Comprehensive LAB 05/06/24 Logged Metabolic Panel 04:00 Npo (Nothing By DIET 05/06/24 Transmitted Mouth) Diet Breakfast Condition: Stable SANDOVAL 05/06/24 In Process 00:20 Acetaminophen Tablet PHA 05/06/24 In Process (Tylenol Tablet) 00:30 Morphine Sulfate PHA 05/06/24 In Process Injection 00:30 Nitroglycerin PHA 05/06/24 In Process Sublingual (Ntrostat 00:30 Morphine Sulfate PHA 05/06/24 In Process Injection 00:30 Oxygen By Nasal RT 05/06/24 Transmitted Cannula 00:20 Stat Ekg For Chest SANDOVAL 05/06/24 In Process Pain 00:20 Notify Of Changes SANDOVAL 05/06/24 In Process From Base 00:20 Troponin-I Hs LAB 05/06/24 In Process 00:20 B-Type Natriuretic LAB 05/06/24 In Process Peptide 00:20 Thyroid Stimulating LAB 05/06/24 In Process Hormone 00:20 Pantoprazole PHA 05/06/24 Logged (Protonix) 10:00 Date of Service: May 06, 2024 Billing Provider: SHWETA LEMONS MD Common Visit Codes: [id number] INP/OBS CARE (HIGH) TESS PATEL RESIDENT May 06, 2024 01:12 SHWETA LEMONS MD May 06, 2024 09:22
[2024-05-06] MEDS: MORPHINE SULFATE INJ 2 MG/ml SYRG IV PRN (02:22)
[2024-05-06 04:21] LABS: Basophils # (auto) 0.1 10 ^3/uL (0-0.2); Basophils % (auto) 0.5 % (0.0-2.0); Eosinophils # (auto) 0 10 ^3/uL (0-0.8); Eosinophils % (auto) 0.2 % (0.0-7.0); Hematocrit 49.2 % (36.0-46.0); Hemoglobin 16.4 g/dL (12.2-16.2); Lymphocytes # (auto) 2.1 10 ^3/uL (0.4-5.4); Mean Corpuscular Hemoglobin 30.6 pg (28.0-32.0); Mean Corpuscular Hgb Conc. 33.2 g/dL (32.0-36.0); Monocytes # (auto) 0.7 10 ^3/uL (0-1.3); Monocytes % (auto) 4.9 % (0.0-12.0); Neutrophils % (auto) 79.4 % (37.0-80.0); Platelet Count (auto) 272 10^3/uL (140-450); Red Blood Cells 5.35 10^6/uL (4.0-5.20); Red Cell Distribution Width 12.9 % (11.8-14.3); White Blood Cell 13.8 10^3/uL (4.4-10.8)
[2024-05-06 04:40] LABS: Alanine Aminotransferase 23 U/L (7-40); Albumin 4.5 g/dL (3.2-4.8); Alkaline Phosphatase 62 U/L (46-116); Anion Gap 10 (5-15); Aspartate Aminotransferase 22 U/L (13-40); BUN/Creatinine Ratio 9.7 (10.0-20.0); Bilirubin, Total 0.9 mg/dL (0.2-1.0); Calcium 9.9 mg/dL (8.7-10.4); Carbon Dioxide 23 mmol/L (20-31); Chloride 103 mmol/L (98-107); Potassium 4.5 mmol/L (3.5-5.1); Sodium 136 mmol/L (136-145); Total Protein 6.7 g/dL (5.7-8.2)
[2024-05-06 05:02] LABS: Blood Urea Nitrogen 7 mg/dL (9-23); Glucose 123 mg/dL (74-106)
[2024-05-06] MEDS ORDERED: hydrALAZINE HCL 20 MG/ML VL IV PRN (05:15)
[2024-05-06] MEDS: hydrALAZINE HCL 20 MG/ML VL IV ONE (05:22)
[2024-05-06] MEDS: SODIUM CHLOR 0.9% PF (SALINE LOCK) 10ML VIAL/SYR IV SCH (05:22)
[2024-05-06] MEDS: HYDROcodone-ACET 5/325MG TAB PO ONE (06:21)
--- NOTE | 2024-05-06 09:22 | ECG ---
[facility] Test Date: 2024-05-05 Test Time: 19:11:37 Pat Name: CORY OMER Department: ER Room: [address] [place] [address] Gender: F Business Asst: RENA : 1965 Requested By: ANALI LEHMAN Order Number: [id number] Reading MD: Dakota Fraser Measurements Intervals [place] Rate: 70 P: 20 CT: 126 QRS: -20 QRSD: 91 T: 40 QT: 416 QTc: 449 Interpretive Statements Sinus rhythm Atrial premature complexes Borderline left axis deviation Minimal ST elevation, inferior leads Electronically Signed On 05-07-2024 17:48:32 PST by Dakota Fraser Please click the below link to view image of tracing.
[2024-05-06] MEDS: cefTRIAXone 1GM/50ML D5W 50 ML IV SCH (09:24)
[2024-05-06] MEDS: PANTOPRAZOLE 40 MG/10 ML VIAL INJ IV SCH (09:25)
[2024-05-06] MEDS: ENOXAPARIN SOD 40 MG/0.4 ML SYRINGE SC SCH (09:26)
--- NOTE | 2024-05-06 09:39 | DVHPN2 ---
Subjective Continue to complain of abdominal pain with nausea Reviewed: Care Plan, H&P, Labs, Medications, Previous Orders, Radiology Changes from previous H/P or p: No Changes Objective Vitals Vital Signs Date Time Temp Pulse Resp B/P (MAP) Pulse Ox O2 Delivery O2 Flow Rate FiO2 05/06/24 08:46 98.7 84 18 128/78 (95) 95 98.7 05/05/24 23:30 Room Air* 0 21 Intake/Output Intake and Output 05/06/24 07:00 Intake Total 1050 ml Balance 1050 ml Intake Oral 0 ml IV Total 1050 ml General Appearance: Alert, Oriented X3, Cooperative, mild distress HEENT: Atraumatic Lungs: Clear to auscultation, Normal air movement Cardiovascular: Regular rate, Normal S1, Normal S2 Abdomen: Normal bowel sounds, Soft, Other (Diffuse tenderness) Neuro: Normal speech, Cranial nerves 3-12 NL Psych/Mental Status: Mental status NL, Mood NL Medications Current Medications Medications Dose Ordered Sig/Ro Route Start Time Stop Time Status Last Admin Dose Admin Sodium Chloride 10 ml Q8HR IV 05/06/24 06:00 05/06/24 05:22 10 ML Sodium Chloride 1,000 ml @ 120 mls/hr Q8H20M IV 05/06/24 00:30 05/06/24 00:49 120 MLS/HR Ondansetron HCl 4 mg Q4HP PRN IV 05/06/24 00:30 Enoxaparin Sodium 40 mg DAILY SC 05/06/24 10:00 Acetaminophen 650 mg Q6HP PRN PO 05/06/24 00:30 Morphine Sulfate 2 mg Q4HPRN PRN IV 05/06/24 00:30 05/06/24 02:22 2 MG Nitroglycerin 0.4 mg Q5MINP PRN SL 05/06/24 00:30 Morphine Sulfate 2 mg Q30M PRN IV 05/06/24 00:30 Pantoprazole Sodium 40 mg DAILY IV 05/06/24 10:00 Ceftriaxone Sodium 50 ml @ 100 mls/hr DAILY@09 IV 05/06/24 09:00 Hydralazine HCl 10 mg Q6HP PRN IV 05/06/24 05:15 Lisinopril 10 mg DAILY PO 05/06/24 10:00 Laboratory Results Laboratory Tests 05/06/24 03:59 Chemistry Test 05/05/24 19:16 05/06/24 03:59 Albumin 4.7 g/dL (3.2-4.8) 4.5 g/dL (3.2-4.8) Calcium Level 10.5 mg/dL (8.7-10.4) H 9.9 mg/dL (8.7-10.4) Magnesium Level 1.8 mg/dL (1.6-2.6) Total Protein 6.7 g/dL (5.7-8.2) 6.7 g/dL (5.7-8.2) Lipid panel Test 05/05/24 19:16 Lipase 44 U/L (12-53) Cardiac Markers Test 05/06/24 00:45 B-Type Natriuretic Peptide 53.63 pg/mL (0-100) LFT Test 05/05/24 19:16 05/06/24 03:59 Alanine Aminotransferase (ALT) 27 U/L (7-40) 23 U/L (7-40) Alkaline Phosphatase 65 U/L (46-116) 62 U/L (46-116) Aspartate Amino Transferase (AST) 21 U/L (13-40) 22 U/L (13-40) Total Bilirubin 0.6 mg/dL (0.2-1.0) 0.9 mg/dL (0.2-1.0) HgA1c, TSH Test 05/06/24 00:45 Thyroid Stimulating Hormone (TSH) 1.68 uIU/mL (0.55-4.78) Urinalysis Test 05/05/24 20:38 Urine Color Light-yellow (Yellow) Urine Clarity Clear (Clear) Urine pH 5.0 (5.0-9.0) Urine Specific [place] 1.020 (1.001-1.035) Urine Protein Negative (Negative) Urine Ketones Negative (Negative) Urine Blood 2+ /uL (Negative) H Urine Nitrite 2+ (Negative) H Urine Bilirubin Negative (Negative) Urine Urobilinogen Normal mg/dL (Negative) Urine Leukocyte Esterase Negative /uL (Negative) Urine RBC 2 /hpf (0 - 4) Urine Microscopic WBC 3 /HPF (0-5) Urine Squamous Epithelial Cells Few /hpf (<5) Urine Bacteria Few /hpf (None Seen) H Urine Mucus Few (None Seen) Urine Glucose Normal mg/dL (Normal) Labs and/or images reviewed: Labs reviewed by me, Image(s) reviewed by me Assessment/Plan Assessment/Plan A 58-year-old female patient; with multiple comorbidities; presented to the emergency department with acute abdominal pain. #Acute abdominal pain; unclear etiology; reviewed available imaging studies and lab work; continue IV antibiotics; continue IV PPIs; continue IV fluids; keep NPO for now; continue pain management as indicated; continue monitoring #Suspected sepsis with leukocytosis and lactic acidosis in the setting of acute abdominal pain and suspected UTI; continue IV antibiotics; pending culture; continue monitoring #Suspected SMILEY in the setting of suspected sepsis; most likely vasomotor nephropathy; avoid nephrotoxic agents; continue monitoring #NSTEMI; demand ischemia; type 2 PA; in the setting of suspected sepsis; to trend troponin; no ischemic changes on EKG; echocardiogram results pending; continue monitoring #Polysubstance use disorder; counseled on alcohol and marijuana use cessation for 22 minutes; continue monitoring #Chronic neck pain associated with headaches/migraines; to restart home gabapentin; continue pain management as indicated; continue monitoring Goals of care discussed with the patient for 20 minutes; full code Late Entry. This medical document was created using an electronic medical record system with computerized dictation system. Although this document has been carefully reviewed, there might still be some phonetic and typographical errors. These areas are purely typographical due to imperfections of the software programs, and do not reflect any compromise in the patient's medical care. Plan discussed with: Patient, Other (Nurse) Date of Service: May 06, 2024 Billing Provider: LESLI MADERA MD Common Visit Codes: [id number] INP/OBS CARE(HIGH) Secondary Visit Codes: [id number] CHNG SMOKING >10MIN (ounseled on alcohol and marijuana use cessation for 22 minutes), [id number] CARE PLAN 30 MINUTES (20 minutes) LESLI MADERA MD May 06, 2024 09:39
[2024-05-06] MEDS: LISINOPRIL 5 MG TAB PO SCH (09:40)
[2024-05-06] MEDS: ACETAMINOPHEN 325 MG TAB PO PRN (16:14)
--- NOTE | 2024-05-06 19:56 | DVHSR ---
APPROVED REPORT EXAM: LIMITED Two-dimensional and M-mode echocardiogram with Doppler and color Doppler. Blood Pressure: 165/95 mmHg INDICATION R/O structural heart disease RISK FACTORS Height: 68, Weight: 174 DIMENSIONS LVDd4.3 (3.8-5.7cm)LA (2D) (1.9-4.0cm)Aortic Root3.4 (2.0-3.7cm) LVDs2.8 (2.5-4.0cm)LA (MM) (1.9-4.0cm)Aortic Cusp Exc1.9 (1.5-2.0cm) EF (%) 65.0 (55-70%)Rt. Atrium (1.9-4.0cm)Asc. Aorta3.2 cm IVSd1.0 (0.7-1.1cm)RV (D) (1.8-2.4cm) PWd1.2 (0.7-1.1cm) Mitral Valve MitralMitral Stenosis E/A ratio0.02D MVAcm2 Aortic Valve Aortic ValveAortic Stenosis LVOT Diameter1.8 (1.8-2.4cm)Doppler AVAcm2 Pulmonic Valve V21.12m/s Other Information Technically limited study due to body habitus and patient position. Patient was non compliant. Unabl e to obtail apical view. Conclusion Technically good study. Difficult acoustic windows. Normal chamber sizes. Valves are normal. EF of 60% with normal RV function. Doppler is suboptimal. No pericardial effusion masses or vegetations.
[2024-05-07] VITALS (7 sets, daily range): BP systolic 101–130; BP diastolic 75–86; PULSE 78–109; RESP 16–20; TEMP 97.5–100; O2SAT 92–96
[2024-05-07 06:34] LABS: Basophils # (auto) 0.1 10 ^3/uL (0-0.2); Basophils % (auto) 0.3 % (0.0-2.0); Eosinophils # (auto) 0.1 10 ^3/uL (0-0.8); Eosinophils % (auto) 0.6 % (0.0-7.0); Hematocrit 42.7 % (36.0-46.0); Hemoglobin 14.7 g/dL (12.2-16.2); Lymphocytes # (auto) 2.5 10 ^3/uL (0.4-5.4); Lymphocytes % (auto) 14.5 % (10.0-50.0); Mean Corpuscular Hemoglobin 31.4 pg (28.0-32.0); Mean Corpuscular Hgb Conc. 34.3 g/dL (32.0-36.0); Mean Corpuscular Volume 91.4 fL (80.0-100.0); Monocytes # (auto) 0.9 10 ^3/uL (0-1.3); Monocytes % (auto) 5.5 % (0.0-12.0); Neutrophils # (auto) 13.6 10 ^3/uL (1.6-8.6); Neutrophils % (auto) 79.1 % (37.0-80.0); Nucleated Red Blood Cells % 0.1 %; Platelet Count (auto) 191 10^3/uL (140-450); Red Blood Cells 4.67 10^6/uL (4.0-5.20); Red Cell Distribution Width 12.9 % (11.8-14.3); White Blood Cell 17.1 10^3/uL (4.4-10.8)
[2024-05-07 06:59] LABS: Alanine Aminotransferase 25 U/L (7-40); Alkaline Phosphatase 63 U/L (46-116); Anion Gap 8 (5-15); Aspartate Aminotransferase 21 U/L (13-40); BUN/Creatinine Ratio 8.1 (10.0-20.0); Carbon Dioxide 24 mmol/L (20-31); Chloride 104 mmol/L (98-107); Glucose 92 mg/dL (74-106); Potassium 3.6 mmol/L (3.5-5.1)
[2024-05-07 07:00] LABS: Albumin 3.9 g/dL (3.2-4.8)
[2024-05-07 07:07] LABS: Blood Urea Nitrogen 7 mg/dL (9-23); Sodium 136 mmol/L (136-145)
[2024-05-07 07:08] LABS: Bilirubin, Total 1.5 mg/dL (0.2-1.0)
[2024-05-07] MEDS: GABAPENTIN 300 MG CAP PO ONE (12:35)
--- NOTE | 2024-05-07 17:20 | DVHPN2 ---
Subjective Decreasing abdominal pain; complaining of headaches/migraines Reviewed: Care Plan, H&P, Labs, Medications, Previous Orders, Radiology Changes from previous H/P or p: Changes Objective Vitals Vital Signs Date Time Temp Pulse Resp B/P (MAP) Pulse Ox O2 Delivery O2 Flow Rate FiO2 05/07/24 13:00 100.0 97 18 127/86 (100) 93 100.0 05/07/24 08:00 Room Air* 0 21 Intake/Output Intake and Output 05/07/24 07:00 Intake Total 490 ml Balance 490 ml Intake Oral 200 ml IV Total 290 ml Tube Feeding 0 ml Blood Product 0 ml Intraperitoneal 0 ml # Voids 5 General Appearance: Alert, Oriented X3, Cooperative, mild distress HEENT: Atraumatic Lungs: Clear to auscultation, Normal air movement Cardiovascular: Regular rate, Normal S1, Normal S2 Abdomen: Normal bowel sounds, Soft, Other (Decreased tenderness) Neuro: Normal speech, Cranial nerves 3-12 NL Psych/Mental Status: Mental status NL, Mood NL Medications Current Medications Medications Dose Ordered Sig/Ro Route Start Time Stop Time Status Last Admin Dose Admin Sodium Chloride 10 ml Q8HR IV 05/06/24 06:00 05/07/24 06:40 10 ML Sodium Chloride 1,000 ml @ 120 mls/hr Q8H20M IV 05/06/24 00:30 05/07/24 08:53 120 MLS/HR Ondansetron HCl 4 mg Q4HP PRN IV 05/06/24 00:30 Enoxaparin Sodium 40 mg DAILY SC 05/06/24 10:00 05/07/24 08:52 40 MG Acetaminophen 650 mg Q6HP PRN PO 05/06/24 00:30 05/07/24 12:42 650 MG Morphine Sulfate 2 mg Q4HPRN PRN IV 05/06/24 00:30 05/07/24 08:53 2 MG Nitroglycerin 0.4 mg Q5MINP PRN SL 05/06/24 00:30 Morphine Sulfate 2 mg Q30M PRN IV 05/06/24 00:30 Pantoprazole Sodium 40 mg DAILY IV 05/06/24 10:00 05/07/24 08:51 40 MG Ceftriaxone Sodium 50 ml @ 100 mls/hr DAILY@09 IV 05/06/24 09:00 05/07/24 08:51 100 MLS/HR Hydralazine HCl 10 mg Q6HP PRN IV 05/06/24 05:15 Lisinopril 10 mg DAILY PO 05/06/24 10:00 Gabapentin 300 mg DAILY@1999 PO 05/07/24 20:00 Laboratory Results Laboratory Tests 05/07/24 05:52 Chemistry Test 05/07/24 05:52 Albumin 3.9 g/dL (3.2-4.8) Calcium Level 9.0 mg/dL (8.7-10.4) Total Protein 6.0 g/dL (5.7-8.2) LFT Test 05/07/24 05:52 Alanine Aminotransferase (ALT) 25 U/L (7-40) Alkaline Phosphatase 63 U/L (46-116) Aspartate Amino Transferase (AST) 21 U/L (13-40) Total Bilirubin 1.5 mg/dL (0.2-1.0) H Urinalysis Test 05/05/24 20:38 Urine Color Light-yellow (Yellow) Urine Clarity Clear (Clear) Urine pH 5.0 (5.0-9.0) Urine Specific [place] 1.020 (1.001-1.035) Urine Protein Negative (Negative) Urine Ketones Negative (Negative) Urine Blood 2+ /uL (Negative) H Urine Nitrite 2+ (Negative) H Urine Bilirubin Negative (Negative) Urine Urobilinogen Normal mg/dL (Negative) Urine Leukocyte Esterase Negative /uL (Negative) Urine RBC 2 /hpf (0 - 4) Urine Microscopic WBC 3 /HPF (0-5) Urine Squamous Epithelial Cells Few /hpf (<5) Urine Bacteria Few /hpf (None Seen) H Urine Mucus Few (None Seen) Urine Glucose Normal mg/dL (Normal) Microbiology Microbiology Date/Time Source Procedure Growth Status 05/06/24 05:22 Blood Blood Culture - Preliminary NO GROWTH AFTER 24 HOURS OF INCUBATION. Resulted 05/05/24 20:38 Voided Urine Urine Culture - Preliminary Resulted Labs and/or images reviewed: Labs reviewed by me, Image(s) reviewed by me Assessment/Plan Assessment/Plan A 58-year-old female patient; with multiple comorbidities; presented to the emergency department with acute abdominal pain. #Acute abdominal pain; unclear etiology; reviewed available imaging studies and lab work; continue IV antibiotics; continue IV PPIs; continue IV fluids; started on clear liquid diet; continue pain management as indicated; continue monitoring #Suspected sepsis with leukocytosis and lactic acidosis in the setting of acute abdominal pain and suspected UTI; changed IV antibiotics due to worsening leukocytosis from ceftriaxone to Zosyn; no bacteria growth for blood cultures; urine cultures: Still growing bacteria; continue monitoring #Suspected SMILEY in the setting of suspected sepsis; most likely vasomotor nephropathy; avoid nephrotoxic agents; continue monitoring #NSTEMI; demand ischemia; type 2 [place]; in the setting of suspected sepsis; to trend troponin; no ischemic changes on EKG; echocardiogram results within normal limits; continue monitoring #Polysubstance use disorder; counseled on alcohol and marijuana use cessation; continue monitoring #Chronic neck pain associated with headaches/migraines; started home gabapentin; to adjust pain management as indicated; continue monitoring Late Entry. This medical document was created using an electronic medical record system with computerized dictation system. Although this document has been carefully reviewed, there might still be some phonetic and typographical errors. These areas are purely typographical due to imperfections of the software programs, and do not reflect any compromise in the patient's medical care. Plan discussed with: Patient, Other (Nurse) My Orders Orders - LESLI MADERA MD Procedure Category Date Status Time Clear Liq Diet DIET 05/07/24 Transmitted Lunch Gabapentin Capsule PHA 05/07/24 In Process (Neurontin Capsule) 20:00 Date of Service: May 07, 2024 Billing Provider: LESLI MADERA MD Common Visit Codes: [id number] INP/OBS CARE(HIGH) LESLI MADERA MD May 07, 2024 17:20
[2024-05-07] MEDS: PIPERACILLIN-TAZOB 3.375GM 100 ML IV SCH (21:23)
[2024-05-07] MEDS: GABAPENTIN 300 MG CAP PO SCH (21:23)
[2024-05-08 01:00] VITALS: BP 139/86; PULSE 92; RESP 18; TEMP 98.6; O2SAT 93
[2024-05-08 05:00] VITALS: BP 133/80; PULSE 94; RESP 18; TEMP 98.2; O2SAT 88
[2024-05-08 07:03] LABS: Basophils # (auto) 0 10 ^3/uL (0-0.2); Basophils % (auto) 0.3 % (0.0-2.0); Eosinophils # (auto) 0.5 10 ^3/uL (0-0.8); Eosinophils % (auto) 3.7 % (0.0-7.0); Hematocrit 40.7 % (36.0-46.0); Hemoglobin 13.5 g/dL (12.2-16.2); Lymphocytes # (auto) 1.9 10 ^3/uL (0.4-5.4); Lymphocytes % (auto) 14.2 % (10.0-50.0); Mean Corpuscular Hemoglobin 30.6 pg (28.0-32.0); Mean Corpuscular Hgb Conc. 33.2 g/dL (32.0-36.0); Mean Corpuscular Volume 92.2 fL (80.0-100.0); Monocytes # (auto) 0.9 10 ^3/uL (0-1.3); Monocytes % (auto) 6.9 % (0.0-12.0); Neutrophils # (auto) 9.9 10 ^3/uL (1.6-8.6); Neutrophils % (auto) 74.9 % (37.0-80.0); Platelet Count (auto) 156 10^3/uL (140-450); Red Blood Cells 4.42 10^6/uL (4.0-5.20); Red Cell Distribution Width 12.8 % (11.8-14.3); White Blood Cell 13.2 10^3/uL (4.4-10.8)
[2024-05-08 07:39] LABS: Alanine Aminotransferase 19 U/L (7-40); Albumin 3.7 g/dL (3.2-4.8); Alkaline Phosphatase 74 U/L (46-116); Anion Gap 10 (5-15); Aspartate Aminotransferase 13 U/L (13-40); BUN/Creatinine Ratio 11.3 (10.0-20.0); Calcium 9.1 mg/dL (8.7-10.4); Carbon Dioxide 23 mmol/L (20-31); Chloride 106 mmol/L (98-107); Glucose 95 mg/dL (74-106); Potassium 3.7 mmol/L (3.5-5.1); Sodium 139 mmol/L (136-145); Total Protein 5.8 g/dL (5.7-8.2)
[2024-05-08 07:40] LABS: Bilirubin, Total 0.9 mg/dL (0.2-1.0)
[2024-05-08 07:42] LABS: Blood Urea Nitrogen 9 mg/dL (9-23)
[2024-05-08 08:00] VITALS: O2SAT 96
[2024-05-08 09:00] VITALS: BP 115/71; PULSE 79; RESP 16; TEMP 98.3; O2SAT 92
--- NOTE | 2024-05-08 11:07 | DVH ---
EXAM: CT HEAD WITHOUT CONTRAST HISTORY: Continuous headache. COMPARISON: None TECHNIQUE: Noncontrast axial CT images of the head were performed. Sagittal and coronal reformatted images were obtained. This CT exam was performed using 1 or more of the following dose reduction techniques: Au tomated exposure control, adjustment of the mA and/or kv according to patient size, or the use of ite rative reconstruction techniques. Radiation Dose : Head: CT Dose: CTDI volume is 56.9 mGy. Dose-length product is 1005.89 mGy*cm FINDINGS: No intracranial hemorrhage, mass, midline shift, hydrocephalus, or evidence of acute large vessel inf arct. The partially-visualized paranasal sinuses are clear. The bilateral mastoid air cells and mid dle ear spaces are clear. No cranial fracture or scalp edema. IMPRESSION: No acute intracranial process.
--- NOTE | 2024-05-08 11:12 | DVH ---
EXAM: CT CERVICAL WITHOUT CONTRAST INDICATION: PAIN EXAM DATE: 05/08/2024 10:43 AM COMPARISON: None TECHNIQUE: Noncontrast axial CT images of the cervical spine were performed. Sagittal and coronal ref ormatted images were obtained. Radiation Dose Information: CT Dose: CTDI volume is 22.57 mGy. Dose-length product is 525.42 mGy*cm FINDINGS: No fracture or listhesis of the cervical spine. 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 There i s advanced degenerative disc disease and facet arthropathy. There is moderate spinal canal stenosis C 6-C7, and mild spinal canal stenosis at other levels. There is significant neural foraminal stenosis at C2-C3 on the right; C3-C4 bilaterally; C4-C5 on the right; C5-C6 bilaterally; C6-C7 bilaterally. There are atherosclerotic calcifications of the left carotid bulb. IMPRESSION: 1. No fracture of the cervical spine. 2. Congenital narrowing of the cervical spinal canal with superimposed degenerative changes causing m oderate spinal canal stenosis at C6-C7. Recommend follow-up outpatient noncontrast MRI of the cervic al spine as there may be mass effect on the cervical spinal cord at that level. 3. Degenerative disc disease and facet arthropathy with multilevel significant neural foraminal steno sis as detailed above. This would also be better characterized with noncontrast MRI, especially if th e patient complains of upper extremity radicular symptoms. 4. Left carotid atherosclerosis. Radiation optimization: All CT scans at this facility use at least one of these dose optimization mag hniques: automated exposure control mA and/or kV adjustment per patient size (includes targeted exam s where dose is matched to clinical indication) or iterative reconstruction.
--- NOTE | 2024-05-08 11:53 | DVHPN2 ---
Subjective No abdominal pain; complaining of headaches/migraines Reviewed: Care Plan, H&P, Labs, Medications, Previous Orders, Radiology, Other (Consultation) Changes from previous H/P or p: Changes Objective Vitals Vital Signs Date Time Temp Pulse Resp B/P (MAP) Pulse Ox O2 Delivery O2 Flow Rate FiO2 05/08/24 09:00 98.3 79 16 115/71 (86) 92 98.3 05/07/24 20:00 Room Air* 0 21 Intake/Output Intake and Output 05/08/24 07:00 Intake Total 3014 ml Output Total 1 ml Balance 3013 ml Intake Oral 1700 ml IV Total 1314 ml Output Urine/Stool Mix 1 ml # Voids 8 General Appearance: Alert, Oriented X3, Cooperative, mild distress HEENT: Atraumatic Lungs: Clear to auscultation, Normal air movement Cardiovascular: Regular rate, Normal S1, Normal S2 Abdomen: Normal bowel sounds, Soft, Other (Decreased tenderness) Neuro: Normal speech, Cranial nerves 3-12 NL Psych/Mental Status: Mental status NL, Mood NL Medications Current Medications Medications Dose Ordered Sig/Or Route Start Time Stop Time Status Last Admin Dose Admin Sodium Chloride 10 ml Q8HR IV 05/06/24 06:00 05/08/24 05:26 10 ML Sodium Chloride 1,000 ml @ 120 mls/hr Q8H20M IV 05/06/24 00:30 05/07/24 18:10 120 MLS/HR Ondansetron HCl 4 mg Q4HP PRN IV 05/06/24 00:30 Enoxaparin Sodium 40 mg DAILY SC 05/06/24 10:00 05/08/24 11:03 40 MG Acetaminophen 650 mg Q6HP PRN PO 05/06/24 00:30 05/08/24 04:05 650 MG Morphine Sulfate 2 mg Q4HPRN PRN IV 05/06/24 00:30 05/07/24 22:47 2 MG Nitroglycerin 0.4 mg Q5MINP PRN SL 05/06/24 00:30 Morphine Sulfate 2 mg Q30M PRN IV 05/06/24 00:30 Pantoprazole Sodium 40 mg DAILY IV 05/06/24 10:00 05/08/24 11:03 40 MG Hydralazine HCl 10 mg Q6HP PRN IV 05/06/24 05:15 Lisinopril 10 mg DAILY PO 05/06/24 10:00 Gabapentin 300 mg DAILY@2000 PO 05/07/24 20:00 05/07/24 21:23 300 MG Piperacillin Sod/ Tazobactam Sod 100 ml @ 25 mls/hr Q8HR IV 05/07/24 22:00 05/08/24 05:26 25 MLS/HR Laboratory Results Laboratory Tests 05/08/24 06:13 Chemistry Test 05/08/24 06:13 Albumin 3.7 g/dL (3.2-4.8) Calcium Level 9.1 mg/dL (8.7-10.4) Total Protein 5.8 g/dL (5.7-8.2) LFT Test 05/08/24 06:13 Alanine Aminotransferase (ALT) 19 U/L (7-40) Alkaline Phosphatase 74 U/L (46-116) Aspartate Amino Transferase (AST) 13 U/L (13-40) Total Bilirubin 0.9 mg/dL (0.2-1.0) Urinalysis Test 05/05/24 20:38 Urine Color Light-yellow (Yellow) Urine Clarity Clear (Clear) Urine pH 5.0 (5.0-9.0) Urine Specific [place] 1.020 (1.001-1.035) Urine Protein Negative (Negative) Urine Ketones Negative (Negative) Urine Blood 2+ /uL (Negative) H Urine Nitrite 2+ (Negative) H Urine Bilirubin Negative (Negative) Urine Urobilinogen Normal mg/dL (Negative) Urine Leukocyte Esterase Negative /uL (Negative) Urine RBC 2 /hpf (0 - 4) Urine Microscopic WBC 3 /HPF (0-5) Urine Squamous Epithelial Cells Few /hpf (<5) Urine Bacteria Few /hpf (None Seen) H Urine Mucus Few (None Seen) Urine Glucose Normal mg/dL (Normal) Microbiology Microbiology Date/Time Source Procedure Growth Status 05/06/24 05:22 Blood Blood Culture - Preliminary NO GROWTH AFTER 48 HOURS OF INCUBATION. Resulted 05/05/24 20:38 Voided Urine Urine Culture - Preliminary Resulted Labs and/or images reviewed: Labs reviewed by me, Image(s) reviewed by me Assessment/Plan Assessment/Plan A 58-year-old female patient; with multiple comorbidities; presented to the emergency department with acute abdominal pain. #Acute abdominal pain; alcohol-induced gastritis as per GI; resolved; reviewed available imaging studies and lab work; evaluated by GI; to be discharged on oral antibiotics and PPIs; to follow up with GI as outpatient #Suspected sepsis with leukocytosis and lactic acidosis in the setting of acute abdominal pain and E coli UTI; to be discharged on oral antibiotics; to follow up with the primary care provider #Suspected SMILEY in the setting of suspected sepsis; most likely vasomotor nephropathy; avoid nephrotoxic agents; to follow up with primary care provider #NSTEMI; demand ischemia; type 2 [place]; in the setting of suspected sepsis; to trend troponin; no ischemic changes on EKG; echocardiogram results within normal limits; to follow up with the primary care provider #Polysubstance use disorder; counseled on alcohol and marijuana use cessation; to follow up with the primary care provider #Chronic neck pain associated with headaches/migraines; continue home gabapentin; ordered and reviewed CT of head and cervical spine; the patient was provided with a copy of the results; to follow up with the spine ortho as outpatient Late Entry. This medical document was created using an electronic medical record system with computerized dictation system. Although this document has been carefully reviewed, there might still be some phonetic and typographical errors. These areas are purely typographical due to imperfections of the software programs, and do not reflect any compromise in the patient's medical care. Plan discussed with: Patient, Other (Nurse) My Orders Orders - LESLI MADERA MD Procedure Category Date Status Time Piperacillin-Tazob PHA 05/07/24 In Process 3.375gm (Zosyn 3.375g 22:00 Soft Diet DIET 05/08/24 Transmitted Lunch *Consult Dr. Jacques CONS 05/08/24 Transmitted Joseph 10:[address] 05/08/24 Resulted 10:[address] 05/08/24 Resulted Contrast 10:44 Date of Service: May 08, 2024 Billing Provider: LESLI MADERA MD Common Visit Codes: [id number] INP/OBS CARE(HIGH) LESLI MADERA MD May 08, 2024 11:53
[2024-05-08] MEDS ORDERED: PANT40T PO (11:57)
[2024-05-08] MEDS ORDERED: LISI-275 PO (11:57)
[2024-05-08] MEDS ORDERED: AUG875T PO (11:57)
[2024-05-08] MEDS ORDERED: GABA-1250 PO (11:57)
[2024-05-08] MEDS ORDERED: METR-344 PO (11:57)
--- NOTE | 2024-05-08 12:00 | DVHDS2 ---
Discharge Summary Date of Admission May 06, 2024 at 00:20 Date of Discharge: May 08, 2024 Admitting Diagnosis Abdominal pain Labs/Diagnostic Data: Laboratory Results Test 05/08/24 06:13 05/07/24 15:18 05/06/24 00:45 05/05/24 21:35 White Blood Count 13.2 10^3/uL (4.4-10.8) Red Blood Count 4.42 10^6/uL (4.0-5.20) Hemoglobin 13.5 g/dL (12.2-16.2) Hematocrit 40.7 % (36.0-46.0) Mean Corpuscular Volume 92.2 fL (80.0-100.0) Mean Corpuscular Hemoglobin 30.6 pg (28.0-32.0) Mean Corpuscular Hemoglobin Concent 33.2 g/dL (32.0-36.0) Red Cell Distribution Width 12.8 % (11.8-14.3) Platelet Count 156 10^3/uL (140-450) Mean Platelet Volume 8.0 fL (6.9-10.8) Neutrophils (%) (Auto) 74.9 % (37.0-80.0) Lymphocytes (%) (Auto) 14.2 % (10.0-50.0) Monocytes (%) (Auto) 6.9 % (0.0-12.0) Eosinophils (%) (Auto) 3.7 % (0.0-7.0) Basophils (%) (Auto) 0.3 % (0.0-2.0) Neutrophils # (Auto) 9.9 10 ^3/uL (1.6-8.6) Lymphocytes # (Auto) 1.9 10 ^3/uL (0.4-5.4) Monocytes # (Auto) 0.9 10 ^3/uL (0-1.3) Eosinophils # (Auto) 0.5 10 ^3/uL (0-0.8) Basophils # (Auto) 0 10 ^3/uL (0-0.2) Nucleated Red Blood Cells 0.0 % Sodium Level 139 mmol/L (136-145) Potassium Level 3.7 mmol/L (3.5-5.1) Chloride Level 106 mmol/L (98-107) Carbon Dioxide Level 23 mmol/L (20-31) Anion Gap 10 (5-15) Blood Urea Nitrogen 9 mg/dL (9-23) Creatinine 0.80 mg/dL (0.550-1.02) Glomerular Filtration Rate Calc 85 mL/min (>90) BUN/Creatinine Ratio 11.3 (10.0-20.0) Serum Glucose 95 mg/dL (74-106) Calcium Level 9.1 mg/dL (8.7-10.4) Total Bilirubin 0.9 mg/dL (0.2-1.0) Aspartate Amino Transferase (AST) 13 U/L (13-40) Alanine Aminotransferase (ALT) 19 U/L (7-40) Alkaline Phosphatase 74 U/L (46-116) Total Protein 5.8 g/dL (5.7-8.2) Albumin 3.7 g/dL (3.2-4.8) Troponin I High Sensitivity 28 ng/L (</=34) B-Type Natriuretic Peptide 53.63 pg/mL (0-100) Thyroid Stimulating Hormone (TSH) 1.68 uIU/mL (0.55-4.78) Lactic Acid Level 1.8 mmol/L (0.4-2.0) Test 05/05/24 20:42 05/05/24 20:38 05/05/24 19:16 Influenza Type A Antigen Negative (Negative) Influenza Type B Antigen Negative (Negative) SARS-CoV-2 Antigen (Rapid) Negative (NEGATIVE) Urine Color Light-yellow (Yellow) Urine Clarity Clear (Clear) Urine pH 5.0 (5.0-9.0) Urine Specific [place] 1.020 (1.001-1.035) Urine Protein Negative (Negative) Urine Ketones Negative (Negative) Urine Blood 2+ /uL (Negative) Urine Nitrite 2+ (Negative) Urine Bilirubin Negative (Negative) Urine Urobilinogen Normal mg/dL (Negative) Urine Leukocyte Esterase Negative /uL (Negative) Urine RBC 2 /hpf (0 - 4) Urine Microscopic WBC 3 /HPF (0-5) Urine Squamous Epithelial Cells Few /hpf (<5) Urine Bacteria Few /hpf (None Seen) Urine Mucus Few (None Seen) Urine Glucose Normal mg/dL (Normal) Urine Opiates Screen Neg (NEGATIVE) Urine Fentanyl Screen Neg (NEGATIVE) Urine Barbiturates Screen Neg (NEGATIVE) Urine Phencyclidine Screen Neg (NEGATIVE) Urine Amphetamines Screen Neg (NEGATIVE) Urine Benzodiazepines Screen Neg (NEGATIVE) Urine Cocaine Screen Neg (NEGATIVE) Urine Cannabinoids Screen Pos (NEGATIVE) Magnesium Level 1.8 mg/dL (1.6-2.6) Lipase 44 U/L (12-53) Plasma/Serum Blood Alcohol 36.1 mg/dL (<10) Other Laboratory Tests 05/08/24 06:13 Brief Hx & Hospital Course: A 58-year-old female patient; with multiple comorbidities; presented to the emergency department with acute abdominal pain. #Acute abdominal pain; alcohol-induced gastritis as per GI; resolved; reviewed available imaging studies and lab work; evaluated by GI; to be discharged on oral antibiotics and PPIs; to follow up with GI as outpatient #Suspected sepsis with leukocytosis and lactic acidosis in the setting of acute abdominal pain and E coli UTI; to be discharged on oral antibiotics; to follow up with the primary care provider #Suspected SMILEY in the setting of suspected sepsis; most likely vasomotor nephropathy; avoid nephrotoxic agents; to follow up with primary care provider #NSTEMI; demand ischemia; type 2 [place]; in the setting of suspected sepsis; to trend troponin; no ischemic changes on EKG; echocardiogram results within normal limits; to follow up with the primary care provider #Polysubstance use disorder; counseled on alcohol and marijuana use cessation; to follow up with the primary care provider #Chronic neck pain associated with headaches/migraines; continue home gabapentin; ordered and reviewed CT of head and cervical spine; the patient was provided with a copy of the results; to follow up with the spine ortho as outpatient Late Entry. This medical document was created using an electronic medical record system with computerized dictation system. Although this document has been carefully reviewed, there might still be some phonetic and typographical errors. These areas are purely typographical due to imperfections of the software programs, and do not reflect any compromise in the patient's medical care. Consults/Reason for consult GI for abdominal pain Condition at Discharge: Stable Final Diagnosis/Problems List Acute abdominal pain; alcohol-induced gastritis as per GI E coli UTI Suspected sepsis Suspected SMILEY Rest of diagnoses as above Discharge Disposition: Home Discharge Instruct/Medications Diet: Cardiac 2g Na,low cholest Diet comment: To advance diet as tolerated Activity: No Restrictions, As Tolerated Follow Up/Referral: To follow up with discharge clinic/continuity clinic in one week//to follow up with GI in 2 to 4 weeks for colonoscopy and EGD//to follow up with Orthopedic spine surgeon (patient was given copies of the results of head and cervical spine CT) Medications: Continue home medications. Discharge on oral antibiotics and pantoprazole. Discharge Statement: "Patient was advised to return to the ER or call 911 if any headaches, dizziness, shortness of breath, chest pain, abdominal pain, bleeding, fevers, or worsening of medical condition. Patient was counseled about treatment plan, medications, possible side effects, patientverbalized understanding. All questions were answered to the best of my ability. This discharge took greater then 30 minutes in planning, reviewing documentation, counseling the patient, and discussing with other team members." ASSESSMENT ASSESSMENT Assessment Date of Service: May 08, 2024 Billing Provider: LESLI MADERA MD Common Visit Codes: 86004-MOI/OBS DISCH DAY >30min LESLI MADERA MD May 08, 2024 12:00
[2024-05-08 13:00] VITALS: BP 133/80; PULSE 77; RESP 18; TEMP 97.8; O2SAT 97
[2024-05-08] MEDS ORDERED: LEVO750T40 PO (13:37)
--- NOTE | 2024-05-08 15:21 | DVHINCON2 ---
Date of service: May 08, [address] Guillen Reason for Consultation Abdominal pain History of Present Illness Nisreen Herbert is a 58-year-old female with a PMH of migraines, cervical radiculopathy presented to the ED with the chief complaints of acute abdominal pain since day of admission. Patient reported t having abdominal pain mostly epigastric which then radiated to both sides and in the lower abdomen. Pain has now resolved.. Patient does drink alcohol moderately and had a beer the day of admission. Patient had a similar episode about three weeks ago but that resolved spontaneously. She has not had any prior endoscopy or colonoscopy. Patient was diagnosed with a UTI and started on IV antibiotics. Patient states she feels better today and is requesting a discharge home. Past Medical History PMH: Migraine, cervical radiculopathy; chronic alcohol use Past Surgical History PSH: Appendicectomy, tonsillectomy Family History: Arthritis G8 FATHER Asthma Allergies: Coded Allergies: Lactose (Verified Allergy, Unknown, 03/09/24) Home Meds Active Scripts Levofloxacin Hemihydrate (LEVOFLOXACIN) 750 Mg Tab, 750 MG PO DAILY for 5 Days, #5 TAB Prov:LESLI MADERA MD 05/08/24 Pantoprazole Sodium Sesquihydr (Pantoprazole Sodium) 40 Mg Tab, 40 MG PO QAM for 30 Days, #30 TAB Prov:LESLI MADERA MD 05/08/24 Lisinopril (Lisinopril) 5 Mg Tab, 10 MG PO DAILY for 30 Days, #60 TAB Prov:LESLI MADERA MD 05/08/24 Gabapentin (Gabapentin) 300 Mg Cap, 300 MG PO DAILY@1999 for 30 Days, #30 CAP 1 Refill Prov:LESLI MADERA MD 05/08/24 Sumatriptan Succinate (Imitrex) 50 Mg Tab, 1 TAB PO BID, #14 TAB 1 Refill Prov:BRIDGET NUNN 03/09/24 Promethazine-Dm (Promethazine Dm 6.25-15 mg/5Ml) 1 Amara Amara, 5 ML PO TID, #150 ML Prov:BRIDGET NUNN 03/09/24 Current Medications Current Medications Medications (Trade) Dose Ordered Sig/Ro Route PRN Reason Start Time Stop Time Status Last Admin Gabapentin (Neurontin Capsule) 300 mg DAILY@1999 PO 05/07/24 20:00 05/07/24 21:23 Piperacillin Sod/ Tazobactam Sod 100 ml @ 25 mls/hr Q8HR IV 05/07/24 22:00 05/08/24 05:26 Vital Signs Vital Signs Date Time Temp Pulse Resp B/P (MAP) Pulse Ox O2 Delivery O2 Flow Rate FiO2 05/08/24 13:00 97.8 77 18 133/80 (97) 97 97.8 05/08/24 08:00 Room Air* 0 21 Physical Exam General Appearance: Alert, Oriented X3, Cooperative, moderate distress HEENT: Atraumatic, Mucous membranes moist/pink Respiratory: Clear to auscultation, Normal air movement, No added sounds Cardiovascular: Regular rate, Normal S1, Normal S2, No murmurs Abdominal: Mild epigastric tenderness. Active bowel sounds, Soft, no distention Extremities: No edema, Normal pulses, No tenderness/swelling Skin: No Significant rash, except past surgical scars Neuro: Normal speech, paresthesia in left upper limb due to radiculopathy Psych/Mental Status: Mental status NL, Mood NL Nurse was there as sharperone during examination Labs/Diagnostic Data Labs Test 05/08/24 06:13 05/07/24 15:18 05/06/24 00:45 05/05/24 21:35 Range/Units White Blood Count 13.2 H 4.4-10.8 10^3/uL Red Blood Count 4.42 4.0-5.20 10^6/uL Hemoglobin 13.5 12.2-16.2 g/dL Hematocrit 40.7 36.0-46.0 % Mean Corpuscular Volume 92.2 80.0-100.0 fL Mean Corpuscular Hemoglobin 30.6 28.0-32.0 pg Mean Corpuscular Hemoglobin Concent 33.2 32.0-36.0 g/dL Red Cell Distribution Width 12.8 11.8-14.3 % Platelet Count 156 140-450 10^3/uL Mean Platelet Volume 8.0 6.9-10.8 fL Neutrophils (%) (Auto) 74.9 37.0-80.0 % Lymphocytes (%) (Auto) 14.2 10.0-50.0 % Monocytes (%) (Auto) 6.9 0.0-12.0 % Eosinophils (%) (Auto) 3.7 0.0-7.0 % Basophils (%) (Auto) 0.3 0.0-2.0 % Neutrophils # (Auto) 9.9 H 1.6-8.6 10 ^3/uL Lymphocytes # (Auto) 1.9 0.4-5.4 10 ^3/uL Monocytes # (Auto) 0.9 0-1.3 10 ^3/uL Eosinophils # (Auto) 0.5 0-0.8 10 ^3/uL Basophils # (Auto) 0 0-0.2 10 ^3/uL Nucleated Red Blood Cells 0.0 % Sodium Level 139 136-145 mmol/L Potassium Level 3.7 3.5-5.1 mmol/L Chloride Level 106 98-107 mmol/L Carbon Dioxide Level 23 20-31 mmol/L Anion Gap 10 5-15 Blood Urea Nitrogen 9 9-23 mg/dL Creatinine 0.80 0.550-1.02 mg/dL Glomerular Filtration Rate Calc 85 >90 mL/min BUN/Creatinine Ratio 11.3 10.0-20.0 Serum Glucose 95 74-106 mg/dL Calcium Level 9.1 8.7-10.4 mg/dL Total Bilirubin 0.9 0.2-1.0 mg/dL Aspartate Amino Transferase (AST) 13 13-40 U/L Alanine Aminotransferase (ALT) 19 7-40 U/L Alkaline Phosphatase 74 46-116 U/L Total Protein 5.8 5.7-8.2 g/dL Albumin 3.7 3.2-4.8 g/dL Troponin I High Sensitivity 28 </=34 ng/L B-Type Natriuretic Peptide 53.63 0-100 pg/mL Thyroid Stimulating Hormone (TSH) 1.68 0.55-4.78 uIU/mL Lactic Acid Level 1.8 0.4-2.0 mmol/L Test 05/05/24 20:42 05/05/24 20:38 05/05/24 19:16 Range/Units Influenza Type A Antigen Negative Negative Influenza Type B Antigen Negative Negative SARS-CoV-2 Antigen (Rapid) Negative NEGATIVE Urine Color Light-yellow Yellow Urine Clarity Clear Clear Urine pH 5.0 5.0-9.0 Urine Specific [place] 1.020 1.001-1.035 Urine Protein Negative Negative Urine Ketones Negative Negative Urine Blood 2+ H Negative /uL Urine Nitrite 2+ H Negative Urine Bilirubin Negative Negative Urine Urobilinogen Normal Negative mg/dL Urine Leukocyte Esterase Negative Negative /uL Urine RBC 2 0 - 4 /hpf Urine Microscopic WBC 3 0-5 /HPF Urine Squamous Epithelial Cells Few <5 /hpf Urine Bacteria Few H None Seen /hpf Urine Mucus Few None Seen Urine Glucose Normal Normal mg/dL Urine Opiates Screen Neg NEGATIVE Urine Fentanyl Screen Neg NEGATIVE Urine Barbiturates Screen Neg NEGATIVE Urine Phencyclidine Screen Neg NEGATIVE Urine Amphetamines Screen Neg NEGATIVE Urine Benzodiazepines Screen Neg NEGATIVE Urine Cocaine Screen Neg NEGATIVE Urine Cannabinoids Screen Pos NEGATIVE Magnesium Level 1.8 1.6-2.6 mg/dL Lipase 44 12-53 U/L Plasma/Serum Blood Alcohol 36.1 H <10 mg/dL Microbiology Date/Time Source Procedure Growth Status 05/06/24 05:22 Blood Blood Culture - Preliminary NO GROWTH AFTER 48 HOURS OF INCUBATION. Resulted 05/05/24 20:38 Voided Urine Urine Culture - Final Escherichia coli Complete CT CHEST ABD PELVIS Impression: 1. Limited evaluation given noncontrast technique. 2. No acute abdominopelvic abnormalities. 3. Diverticulosis without evidence of acute diverticulitis. 4. Bilateral gluteal and proximal thigh soft tissue edema with superimposed injection granulomas. Problems(with codes): (1) Nausea vomiting and diarrhea (2) Abdominal pain (3) Alcohol abuse (4) Urinary tract infection Plan/Recommendation Plan Patient is suspected to have alcohol-related gastritis which has resolved She is also has UTI Patient is requesting a discharge home Patient can be sent on Protonix 40 mg p.o. daily She will be given Levaquin 500 mg p.o. daily for her UTI My contact information was given and patient was told to follow up in my office in 2-4 weeks to arrange elective endoscopy and colonoscopy Patient was also advised to discontinue aspirin NSAIDs smoking and alcohol and substance abuse Plan discussed with: Patient, Other (Nurse) FRANK IRBY MD May 08, 2024 15:20
== END 2024-05-08 17:08 | disposition home or self-care (01) | DRG 720 ==
LOC: ER 18:47 → OVERFLOW 05-06 00:20 → EAST 05-06 14:34
PROVIDERS: ADMIT Internal Medicine; ATTEND Internal Medicine
DX: A41.9 Sepsis, unspecified organism (principal); N17.0 Acute kidney failure with tubular necrosis; I21.A1 Myocardial infarction type 2; I16.0 Hypertensive urgency; K29.20 Alcoholic gastritis without bleeding; N39.0 Urinary tract infection, site not specified; Z20.822 Contact with and (suspected) exposure to COVID-19; B96.20 Unspecified Escherichia coli [E. coli] as the cause of diseases classified elsewhere; G89.29 Other chronic pain; G43.909 Migraine, unspecified, not intractable, without status migrainosus; F10.129 Alcohol abuse with intoxication, unspecified; F12.10 Cannabis abuse, uncomplicated; K57.30 Diverticulosis of large intestine without perforation or abscess without bleeding; F19.10 Other psychoactive substance abuse, uncomplicated; E87.20 Acidosis, unspecified; Z90.49 Acquired absence of other specified parts of digestive tract; Z79.899 Other long term (current) drug therapy; Z88.8 Allergy status to other drugs, medicaments and biological substances; Z82.5 Family history of asthma and other chronic lower respiratory diseases; Z82.61 Family history of arthritis; Z91.011 Allergy to milk products; Y90.1 Blood alcohol level of 20-39 mg/100 ml
CPT/HCPCS: 36415; 70450; 71045; 72125; 74176; 80053; 80307; 80320; 81001; 83605; 83690; 83735; 83880; 84443; 84484; 85025; 87040; 87086; 87088; 87186; 87426; 87804; 93005; 93306; 96365; 96375; 99291; G0378; J2405; J2470; J2543